=== PATIENT | male | born 1975 | race Caucasian/White ===

== ENCOUNTER 2016-09-29 16:32 | Emergency (ER) | payer SELFPAY ==
[~2016-09-29] VITALS: Ht 185.4 cm; Wt 86.2 kg
[~2016-09-29 16:32] MED LIST: ASPI1TAB17 PO; CEPH500C GT; CYCL10TA9 PO; MEPE50TA PO; ONDA4TAB11 PO; PRD20T PO; TRAM50TA2 PO
[2016-09-29] MEDS ORDERED: CATHETER FLUSH 10 ML SYR IV PRN (17:00)
[2016-09-29] MEDS ORDERED: NS 100 ML (IVPB) BAG IV ONE (17:00)
[2016-09-29] MEDS ORDERED: IOHEXOL 350 MG/ML 100 ML (OMNIPAQUE 350) VIAL IV ONE (17:00)
[2016-09-29] MEDS ORDERED: fentaNYL INJECTION 100 MCG/2 ML AMP IVP ONE (17:00)
--- NOTE | 2016-09-29 17:02 | ED Fall/Injury ---
General Chief Complaint: Trauma-Non Activation Stated Complaint: FELL OFF LADDER/RT SIDED BODY PAIN Nursing Triage Note: SEE TRAUMA NOTES Source: patient Exam Limitations: no limitations History of Present Illness Time seen by provider: 17:01 Initial Comments Ambulatory to ER with reports of right-sided body pain. Patient was climbing up onto his roof to fix a gutter. He was on the top rung of a 10 foot tall ladder when he slipped and fell striking the ladder on his way down. He felt a popping sensation to the right elbow and now has pain in the right elbow and right shoulder. He struck the right side of the abdomen on something on the way down and also has pain in the right lower abdomen. He did strike his head but there was no loss of consciousness. No neck pain. Location Injury Occurred: PT HOUSE Occurred: just prior to arrival Severity: moderate Injuries/Pain Location: upper extremity, abdomen Context: slipped Associated Symptoms (Fall): Abdominal Pain, No Chest Pain, No Confusion, No Dizziness, No Headache Allergies and Home Medications Allergies Coded Allergies: Codeine (Unverified Allergy, Mild, 08/22/09) Home Medications Hydrocodone/Acetaminophen 1 Each Tablet, 1 EACH PO Q4H PRN for PAIN-MODERATE TO SEVERE, #10 Prescribed by: SRAVANI COPE on 09/29/16 8169 Constitutional: see HPI Eyes: No Symptoms Reported Ears, Nose, Mouth, Throat: no symptoms reported Respiratory: no symptoms reported Cardiovascular: no symptoms reported Genitourinary: no symptoms reported Musculoskeletal: see HPI Skin: no symptoms reported Psychiatric/Neurological: No Symptoms Reported Past Zxxkzkh-Vphdly-Gozzmg Hx Patient Social History Alcohol Use: Denies Use Recreational Drug Use: No Smoking Status: Current Everyday Smoker Type Used: Cigarettes 2nd Hand Smoke Exposure: Yes Recent Foreign Travel: No Contact w/Someone Who Travel: No Recent Infectious Disease Expo: No Recent Hopitalizations: No Immunizations Up To Date Tetanus Booster (TDap): Less than 5yrs Seasonal Allergies Seasonal Allergies: No Surgeries HX Surgeries: Yes (Z-PLASTY) Respiratory Hx Respiratory Disorders: No Cardiovascular Hx Cardiac Disorders: No Neurological Hx Neurological Disorders: No Genitourinary Hx Genitourinary Disorders: No Gastrointestinal Hx Gastrointestinal Disorders: No Musculoskeletal Hx Musculoskeletal Disorders: Yes Musculoskeletal Disorders: Chronic Back Pain Endocrine Hx Endocrine Disorders: No HEENT HX ENT Disorders: No Cancer Hx Cancer: No Psychosocial Hx Psychiatric Problems: No Integumentary HX Skin/Integumentary Disorder: No Blood Transfusions Hx Blood Disorders: No Family Medical History Significant Family History: No Pertinent Family Hx Physical Exam Vital Signs Vital Sign - Last 12Hours 09/29/16 16:39 Temp 98.1 Pulse 85 Resp 20 B/P (MAP) 123/74 Pulse Ox 94 O2 Delivery Room Air Capillary Refill : Less Than 3 Seconds General Appearance: WD/WN, no apparent distress HEENT: PERRL/EOMI, normal ENT inspection Neck: non-tender, full range of motion Respiratory: lungs clear, normal breath sounds, no respiratory distress, no accessory muscle use Gastrointestinal: normal bowel sounds, soft, tenderness (right side of the abdomen) Extremities: normal range of motion, non-tender, other (there is no obvious swelling deformity erythema or ecchymosis to the right arm however he does persistently complain of pain to the right elbow.) Neurologic/Psychiatric: alert, normal mood/affect, oriented x 3 Skin: normal color, warm/dry Dayana Coma Score Best Eye Response: (4) Open Spontaneously Best Verbal Response: (5) Oriented Best Motor Response: (6) Obeys Commands Dayana Total: 15 Progress/Results/Core Measures Results/Orders Lab Results Laboratory Tests Test 09/29/16 16:55 Range/Units White Blood Count 6.0 4.3-11.0 10^3/uL Red Blood Count 4.68 4.35-5.85 10^6/uL Hemoglobin 14.0 13.3-17.7 G/DL Hematocrit 42 40-54 % Mean Corpuscular Volume 89 80-99 FL Mean Corpuscular Hemoglobin 30 25-34 PG Mean Corpuscular Hemoglobin Concent 34 32-36 G/DL Red Cell Distribution Width 13.5 10.0-14.5 % Platelet Count 271 130-400 10^3/uL Mean Platelet Volume 10.0 7.4-10.4 FL Neutrophils (%) (Auto) 46 42-75 % Lymphocytes (%) (Auto) 33 12-44 % Monocytes (%) (Auto) 9 0-12 % Eosinophils (%) (Auto) 12 H 0-10 % Basophils (%) (Auto) 1 0-10 % Neutrophils # (Auto) 2.7 1.8-7.8 X 10^3 Lymphocytes # (Auto) 2.0 1.0-4.0 X 10^3 Monocytes # (Auto) 0.5 0.0-1.0 X 10^3 Eosinophils # (Auto) 0.7 H 0.0-0.3 10^3/uL Basophils # (Auto) 0.1 0.0-0.1 10^3/uL My Orders Orders - SRAVANI COPE APRN Saline Lock/Iv-Start (09/29/16 16:53) Ct Head/Cervical Spine Wo (09/29/16 16:53) Ct Chest/Abdomen/Pelvis W (09/29/16 16:53) Shoulder, Right, 3 Views (09/29/16 16:53) Elbow, Right, 3 Views (09/29/16 16:53) Fentanyl Injection (Sublimaze Injection (09/29/16 17:00) Cbc With Automated Diff (09/29/16 16:53) Iohexol Injection (Omnipaque 350 Mg/Ml 1 (09/29/16 17:00) Sodium Chloride Flush (Catheter Flush Sy (09/29/16 17:00) Ns (Ivpb) (Sodium Chloride 0.9% Ivpb Bag (09/29/16 17:00) Medications Given in ED Current Medications Medications Dose Ordered Sig/Annetta Route Start Time Stop Time Status Last Admin Dose Admin Fentanyl Citrate 75 mcg ONCE ONCE IVP 09/29/16 17:00 09/29/16 17:01 DC 09/29/16 17:11 75 MCG Iohexol 100 ml ONCE ONCE IV 09/29/16 17:00 09/29/16 17:01 DC 09/29/16 17:30 100 ML Sodium Chloride 10 ml NEEDED PRN IV 09/29/16 17:00 09/29/16 17:30 10 ML Sodium Chloride 100 ml ONCE ONCE IV 09/29/16 17:00 09/29/16 17:01 DC 09/29/16 17:30 80 ML Vital Signs/I&O Vital Sign - Last 12Hours 09/29/16 16:39 Temp 98.1 Pulse 85 Resp 20 B/P (MAP) 123/74 Pulse Ox 94 O2 Delivery Room Air Blood Pressure Mean: 90 Diagnostic Imaging Diagonstic Imaging: Xray Comments NAME: ESTRELLA THOMAS MED REC#: [id number] PT STATUS: REG ER : 1975 PHYSICIAN: SRAVANI COPE APRN ADMIT DATE: 09/29/16/ER Draft Date of Exam:09/29/16 CT CHEST/ABDOMEN/PELVIS W PROCEDURE: CT chest, abdomen, and pelvis with contrast. INDICATION: Status post fall of ladder. Right mid sided pain. TECHNIQUE: CT imaging of the chest, abdomen and pelvis following the administration of intravenous contrast. CORRELATION STUDY: CT abdomen and pelvis, 07/23/2015. FINDINGS: CT CHEST: Heart size is unremarkable. Thoracic aorta has an unremarkable appearance. There is common origin of the brachycephalic trunk and left common carotid artery, a normal vascular variation. No suggestion for significant mediastinal hematoma. Lung evangelista with linear parenchymal densities of the lung bases, right greater than left, where there is slight nodularity favoring probable atelectasis. More focal nodular in the deep right costophrenic angle, measuring 14 x 9 mm. No significant effusion. No pneumothorax. Osseous structures demonstrate mild leftward curvature of the thoracic spine. No suggestion for acute appearing compression deformity. No displaced rib fracture. CT ABDOMEN and PELVIS: Liver demonstrates a hypervascular area of enhancement in the dome, otherwise, unremarkable. The gallbladder, spleen, pancreas and adrenal glands appear unremarkable. Normal enhancement of the kidneys. Abdominal aorta is unremarkable. No abnormal ascites or free air. There is overall slight enhancement suggested about the gastrointestinal tract. Moderate severity fecal retention. Urinary bladder is unremarkable. Prostate gland is unremarkable. Osseous structures demonstrate no acute finding. IMPRESSION: CT CHEST: 1. Negative for acute traumatic abdomen of the chest. 2. Likely basilar atelectasis. Slightly nodular density in the deep right costophrenic angle favors additional atelectasis. Pulmonary nodule, however, is not completely excluded. CT ABDOMEN and PELVIS: 1. Negative for acute traumatic abnormality about the abdomen and/or pelvis. 2. Suggestion of slight enhancement about the gastrointestinal tract. Correlation with blood pressure recommended. Telephone call has been made to the emergency department. Dictated on workstation # [id number] Dict: 09/29/16 1754 Trans: 09/29/16 1838 [facility] [id number] Interpreted by: JOEY HELTON DO Electronically signed by: Departure Impression Impression: Primary Impression: Fall Additional Impressions: Right arm pain Incidental pulmonary nodule Disposition: 01 HOME, SELF-CARE Condition: Stable Departure-Patient Inst. Decision time for Depature: 18:55 Referrals: [facility] (PCP/Family) Primary Care Physician Patient Instructions: Preventing Falls Add. Discharge Instructions: 1. Follow up with your doctor next week for any persistent right elbow pain to obtain further imaging such as an MRI to rule out ligamentous or tendinous injury. 2. Return to ER for any concerns All discharge instructions reviewed with patient and/or family. Voiced understanding. Scripts Hydrocodone/Acetaminophen ([place] 5-325 Tablet) 1 Each Tablet 1 EACH PO Q4H Y for PAIN-MODERATE TO SEVERE, #10 TAB Prov: SRAVANI COPE APRN 09/29/16 Copy Copies To 1: HOOD GOYAL PETER J APRN Sep 29, 2016 17:02
[2016-09-29 17:09] LABS: BASOPHILS # (AUTO) 0.1 10^3/uL (0.0-0.1); BASOPHILS % (AUTO) 1 % (0-10); EOSINOPHILS # (AUTO) 0.7 10^3/uL (0.0-0.3); EOSINOPHILS % (AUTO) 12 % (0-10); LYMPHOCYTES % (AUTO) 33 % (12-44); MEAN CORPUSCULAR HEMOGLOBIN 30 PG (25-34); MEAN CORPUSCULAR HGB CONC 34 G/DL (32-36); MEAN CORPUSCULAR VOLUME 89 FL (80-99); MONOCYTES # (AUTO) 0.5 X 10^3 (0.0-1.0); MONOCYTES % (AUTO) 9 % (0-12); NEUTROPHILS # (AUTO) 2.7 X 10^3 (1.8-7.8); NEUTROPHILS % (AUTO) 46 % (42-75); PLATELET COUNT 271 10^3/uL (130-400); RED BLOOD COUNT 4.68 10^6/uL (4.35-5.85); RED CELL DISTRIBUTION WIDTH 13.5 % (10.0-14.5)
--- NOTE | 2016-09-29 17:55 | Diagnostic Imaging Report ---
INDICATION: Fall of ladder, and right arm backwards. Pain. TECHNIQUE: Three views of the right shoulder 5:59 PM CORRELATION STUDY: None FINDINGS: The glenohumeral and acromioclavicular alignment are maintained and unremarkable. There is no evidence for acute fracture or dislocation. The visualized soft tissues are unremarkable. IMPRESSION: 1. Negative for acute bony abnormality about the shoulder. Dictated by: Dictated on workstation # [id number]
--- NOTE | 2016-09-29 17:55 | Diagnostic Imaging Report ---
PROCEDURE: CT head and CT cervical spine without contrast. TECHNIQUE: Multiple contiguous axial images were obtained through the brain and cervical spine without the use of intravenous contrast. Sagittal and coronal reformations through the cervical spine were then performed. INDICATION: Status post fall off ladder. CORRELATION STUDY: 08/30/2009 FINDINGS: CT HEAD: Ventricles and sulci are unremarkable. Normal rich-white differentiation. No abnormal areas of decreased attenuation to suggest edema. No midline shift or mass effect. Basilar cisterns are maintained. Bony calvarium intact. There is rather significant mucosal thickening and/or opacification along with air-fluid levels throughout all paranasal sinuses. Sphenoid sinuses are essentially opacified as well as multiple ethmoid air cells. Probable cysts or polyps in bilateral maxillary sinuses as well. Mastoid air cells clear. CT CERVICAL SPINE: Alignment anatomic. Cervical vertebral body heights generally stable with slight anterior wedging at multiple levels. No acute-appearing compression deformity. Posterior elements intact and in normal alignment. Odontoid intact with lateral masses of C1 and C2 aligned. IMPRESSION: CT HEAD: 1. Negative for acute traumatic intracranial abnormality. 2. Rather pronounced pansinusitis. CT CERVICAL SPINE: 1. Negative for acute fracture or traumatic subluxation. 2. Mild multilevel degenerative changes are present. Dictated by: Dictated on workstation # [id number]
--- NOTE | 2016-09-29 18:28 | Diagnostic Imaging Report ---
EXAMINATION: Right elbow at 5:58 PM INDICATION: Injury, elbow pain Three views were obtained. There are no prior studies available for comparison. There is slight deformity of the radial head. I suspect that this is a sequela of prior trauma. There is no fracture or acute bony abnormality identified. The elbow joint is well maintained. The posterior fat-pad is not elevated. IMPRESSION: 1. The slight irregularity of the radial head is more likely due to prior trauma than to an acute abnormality. There is no acute fracture identified. 2. Occult fracture of the elbow joint are not uncommon. If clinical concern regarding an underlying abnormality persists, then a short-term (7-10 days) followup right elbow series should be obtained. Dictated by: Dictated on workstation # [id number]
--- NOTE | 2016-09-29 18:38 | Diagnostic Imaging Report ---
PROCEDURE: CT chest, abdomen, and pelvis with contrast. INDICATION: Status post fall of ladder. Right mid sided pain. TECHNIQUE: CT imaging of the chest, abdomen and pelvis following the administration of intravenous contrast. CORRELATION STUDY: CT abdomen and pelvis, 07/23/2015. FINDINGS: CT CHEST: Heart size is unremarkable. Thoracic aorta has an unremarkable appearance. There is common origin of the brachycephalic trunk and left common carotid artery, a normal vascular variation. No suggestion for significant mediastinal hematoma. Lung evangelista with linear parenchymal densities of the lung bases, right greater than left, where there is slight nodularity favoring probable atelectasis. More focal nodular in the deep right costophrenic angle, measuring 14 x 9 mm. No significant effusion. No pneumothorax. Osseous structures demonstrate mild leftward curvature of the thoracic spine. No suggestion for acute appearing compression deformity. No displaced rib fracture. CT ABDOMEN and PELVIS: Liver demonstrates a hypervascular area of enhancement in the dome, otherwise, unremarkable. The gallbladder, spleen, pancreas and adrenal glands appear unremarkable. Normal enhancement of the kidneys. Abdominal aorta is unremarkable. No abnormal ascites or free air. There is overall slight enhancement suggested about the gastrointestinal tract. Moderate severity fecal retention. Urinary bladder is unremarkable. Prostate gland is unremarkable. Osseous structures demonstrate no acute finding. IMPRESSION: CT CHEST: 1. Negative for acute traumatic abdomen of the chest. 2. Likely basilar atelectasis. Slightly nodular density in the deep right costophrenic angle favors additional atelectasis. Pulmonary nodule, however, is not completely excluded. CT ABDOMEN and PELVIS: 1. Negative for acute traumatic abnormality about the abdomen and/or pelvis. 2. Suggestion of slight enhancement about the gastrointestinal tract. Correlation with blood pressure recommended. Telephone call has been made to the emergency department. Dictated by: Dictated on workstation # [id number]
[2016-09-29] MEDS ORDERED: HYDR-757 PO (18:57)
[2016-09-29 19:47] VITALS: BP 123/74
== END 2016-09-29 19:47 | disposition home or self-care (01) ==
LOC: EDUNIT# 16:32 → ER 16:35
DX: M25.521 Pain in right elbow (principal); R91.1 Solitary pulmonary nodule; F17.210 Nicotine dependence, cigarettes, uncomplicated; W11.XXXA Fall on and from ladder, initial encounter; W22.09XA Striking against other stationary object, initial encounter; Y92.89 Other specified places as the place of occurrence of the external cause
CPT/HCPCS: 36415; 70450; 71260; 72125; 73030; 73080; 74177; 85025

== ENCOUNTER 2016-11-14 23:42 | Inpatient (IN) | payer OTHER ==
[~2016-11-14] VITALS: Ht 185.4 cm; Wt 83.1 kg
[~2016-11-14 23:42] MED LIST changes: +HYDR-757 PO
[2016-11-14] MEDS ORDERED: IBUP-1780 (23:58)
[2016-11-14] MEDS ORDERED: DIVA500T15 PO (23:58)
[2016-11-14] MEDS ORDERED: AMOX500C2 (23:58)
[2016-11-15] MEDS ORDERED: NS IV 1000 ML 1,000 ML IV ONE (00:03)
[2016-11-15] MEDS ORDERED: CLINDAMYCIN INJECTION 900 MG in NS (IVPB) 50 ML IV ONE (00:45)
[2016-11-15 00:57] LABS: BASOPHILS % (AUTO) 1 % (0-10); EOSINOPHILS # (AUTO) 0.4 10^3/uL (0.0-0.3); EOSINOPHILS % (AUTO) 6 % (0-10); LYMPHOCYTES # (AUTO) 1.1 X 10^3 (1.0-4.0); LYMPHOCYTES % (AUTO) 15 % (12-44); MEAN CORPUSCULAR HEMOGLOBIN 30 PG (25-34); MEAN CORPUSCULAR HGB CONC 34 G/DL (32-36); MEAN CORPUSCULAR VOLUME 88 FL (80-99); MEAN PLATELET VOLUME 10.3 FL (7.4-10.4); MONOCYTES # (AUTO) 0.8 X 10^3 (0.0-1.0); MONOCYTES % (AUTO) 11 % (0-12); NEUTROPHILS # (AUTO) 4.9 X 10^3 (1.8-7.8); NEUTROPHILS % (AUTO) 68 % (42-75); PLATELET COUNT 223 10^3/uL (130-400); RED BLOOD COUNT 4.33 10^6/uL (4.35-5.85); RED CELL DISTRIBUTION WIDTH 13.1 % (10.0-14.5); WHITE BLOOD COUNT 7.3 10^3/uL (4.3-11.0)
[2016-11-15] MEDS ORDERED: fentaNYL INJECTION 100 MCG/2 ML AMP IVP ONE (01:00)
[2016-11-15 01:07] LABS: PROTHROMBIN TIME PATIENT 12.6 SEC (12.2-14.7)
[2016-11-15 01:14] LABS: ALANINE AMINOTRANSFERASE 110 U/L (0-55); ALBUMIN 3.9 GM/DL (3.2-4.5); ANION GAP 11 MMOL/L (5-14); ASPARTATE AMINO TRANSFERASE 97 U/L (5-34); BILIRUBIN,TOTAL 0.4 MG/DL (0.1-1.0); BLOOD UREA NITROGEN 12 MG/DL (7-18); BUN/CREATININE RATIO 13; CALCIUM 8.9 MG/DL (8.5-10.1); CARBON DIOXIDE 27 MMOL/L (21-32); CHLORIDE 101 MMOL/L (98-107); CREATININE SERUM 0.95 MG/DL (0.60-1.30); GFR ESTIMATED > 60; GLUCOSE 72 MG/DL (70-105); POTASSIUM 3.5 MMOL/L (3.6-5.0); SODIUM 139 MMOL/L (135-145)
--- NOTE | 2016-11-15 01:58 | ED General ---
General Chief Complaint: Dental Problems/Pain Stated Complaint: TOOTHPAIN NECK PAIN Nursing Triage Note: right dental pain/abcess x12 days Nursing Sepsis Screen: Possible Sepsis Risk Source of Information: Patient Exam Limitations: No Limitations History of Present Illness Time Seen by Provider: 00:03 Initial Comments This 41-year-old man presents to the emergency room with complaints of fever and worsening dental abscess. He has been taking amoxicillin for the past 12 days in anticipation of eventually having dental extractions. He plans to see Dr. Klein to have this performed. He reports treatment started when he was recently in [facility]. He was released on 10/13. He continues to take the antibiotics without improvement. Tonight he is notably febrile and tachycardic. He complains of intense pain around the right lower jaw. He reports he cannot have local anesthetic injections as he has seizure disorder and these injections caused him to "fall out and have a seizure". Allergies and Home Medications Allergies Coded Allergies: Codeine (Unverified Allergy, Mild, 08/22/09) Home Medications Amoxicillin 500 Mg Capsule, #40 (Reported) Divalproex Sodium 500 Mg Tab.er.24h, #14 (Reported) Hydrocodone/Acetaminophen 1 Each Tablet, 1 EACH PO Q4H PRN for PAIN-MODERATE TO SEVERE, #10 Prescribed by: SRAVANI COPE on 09/29/16 1097 Ibuprofen 800 Mg Tablet, #42 (Reported) Constitutional: see HPI EENTM: see HPI Respiratory: no symptoms reported Cardiovascular: see HPI Gastrointestinal: no symptoms reported Genitourinary: no symptoms reported Musculoskeletal: no symptoms reported Skin: no symptoms reported Psychiatric/Neurological: No Symptoms Reported Hematologic/Lymphatic: No Symptoms Reported Immunological/Allergic: no symptoms reported Past Pagqymp-Vabpbj-Mtjyds Hx Patient Social History Alcohol Use: Denies Use Recreational Drug Use: Yes (prior history of IV drug use) Smoking Status: Current Everyday Smoker Type Used: Cigarettes 2nd Hand Smoke Exposure: Yes Recent Foreign Travel: No Contact w/Someone Who Travel: No Recent Infectious Disease Expo: No Recent Hopitalizations: No Immunizations Up To Date Tetanus Booster (TDap): Less than 5yrs Seasonal Allergies Seasonal Allergies: No Surgeries HX Surgeries: Yes (Z-PLASTY) Respiratory Hx Respiratory Disorders: No Cardiovascular Hx Cardiac Disorders: No Neurological Hx Neurological Disorders: Yes Neurological Disorders: Seizure Disorder Genitourinary Hx Genitourinary Disorders: No Gastrointestinal Hx Gastrointestinal Disorders: Yes Gastrointestinal Disorders: Hepatitis (hepatitis C) Musculoskeletal Hx Musculoskeletal Disorders: Yes Musculoskeletal Disorders: Chronic Back Pain Endocrine Hx Endocrine Disorders: No HEENT HX ENT Disorders: No Cancer Hx Cancer: No Psychosocial Hx Psychiatric Problems: No Integumentary HX Skin/Integumentary Disorder: No Blood Transfusions Hx Blood Disorders: No Family Medical History Significant Family History: No Pertinent Family Hx Physical Exam Vital Signs Vital Sign - Last 12Hours 11/14/16 23:58 Temp 102.5 Pulse 119 Resp 20 B/P (MAP) 136/114 Pulse Ox 98 O2 Delivery Room Air Capillary Refill : Less Than 3 Seconds General Appearance: WD/WN, Mild Distress HEENT: PERRL/EOMI, Other (swelling, induration and extreme tenderness around the right lower lateral gingiva and beneath the mandible. No lymphadenopathy noted. No overt superficial abscess to be drained.) Neck: Full Range of Motion, Normal Inspection, Supple, Tender Lateral (right anterior) Respiratory: Lungs Clear, Normal Breath Sounds, No Accessory Muscle Use, No Respiratory Distress Cardiovascular: No Edema, No Murmur, Tachycardia Gastrointestinal: Normal Bowel Sounds, Non Tender, Soft Extremity: Normal Inspection, No Pedal Edema Neurologic/Psychiatric: Alert, Oriented x3, No Motor/Sensory Deficits, Normal Mood/Affect, bleach analyst II-XII Norm as Tested Skin: Normal Color, Warm/Dry Focused Exam Lactic Acid Level Laboratory Tests Test 11/15/16 00:44 Lactic Acid Level 1.35 MMOL/L (0.50-2.00) Progress/Results/Core Measures Results/Orders Lab Results Laboratory Tests Test 11/15/16 00:44 Range/Units White Blood Count 7.3 4.3-11.0 10^3/uL Red Blood Count 4.33 L 4.35-5.85 10^6/uL Hemoglobin 13.0 L 13.3-17.7 G/DL Hematocrit 38 L 40-54 % Mean Corpuscular Volume 88 80-99 FL Mean Corpuscular Hemoglobin 30 25-34 PG Mean Corpuscular Hemoglobin Concent 34 32-36 G/DL Red Cell Distribution Width 13.1 10.0-14.5 % Platelet Count 223 130-400 10^3/uL Mean Platelet Volume 10.3 7.4-10.4 FL Neutrophils (%) (Auto) 68 42-75 % Lymphocytes (%) (Auto) 15 12-44 % Monocytes (%) (Auto) 11 0-12 % Eosinophils (%) (Auto) 6 0-10 % Basophils (%) (Auto) 1 0-10 % Neutrophils # (Auto) 4.9 1.8-7.8 X 10^3 Lymphocytes # (Auto) 1.1 1.0-4.0 X 10^3 Monocytes # (Auto) 0.8 0.0-1.0 X 10^3 Eosinophils # (Auto) 0.4 H 0.0-0.3 10^3/uL Basophils # (Auto) 0.0 0.0-0.1 10^3/uL Prothrombin Time 12.6 12.2-14.7 SEC INR Comment 1.0 0.8-1.4 Activated Partial Thromboplast Time 65 H 24-35 SEC Sodium Level 139 135-145 MMOL/L Potassium Level 3.5 L 3.6-5.0 MMOL/L Chloride Level 101 98-107 MMOL/L Carbon Dioxide Level 27 21-32 MMOL/L Anion Gap 11 5-14 MMOL/L Blood Urea Nitrogen 12 7-18 MG/DL Creatinine 0.95 0.60-1.30 MG/DL Estimat Glomerular Filtration Rate > 60 BUN/Creatinine Ratio 13 Glucose Level 72 70-105 MG/DL Lactic Acid Level 1.35 0.50-2.00 MMOL/L Calcium Level 8.9 8.5-10.1 MG/DL Total Bilirubin 0.4 0.1-1.0 MG/DL Aspartate Amino Transf (AST/SGOT) 97 H 5-34 U/L Alanine Aminotransferase (ALT/SGPT) 110 H 0-55 U/L Alkaline Phosphatase 60 40-136 U/L Total Protein 8.0 6.4-8.2 GM/DL Albumin 3.9 3.2-4.5 GM/DL Valproic Acid (Depakene) Level < 2.0 L 50.0-100.0 UG/ML My Orders Orders - ISAIAH KNIGHT MD Cbc With Automated Diff (11/15/16 00:03) Comprehensive Metabolic Panel (11/15/16 00:03) Lactic Acid Analyzer (11/15/16 00:03) Blood Culture (11/15/16 00:03) Sputum Culture (11/15/16 00:03) Ua Culture If Indicated (11/15/16 00:03) Protime With Inr (11/15/16 00:03) Partial Thromboplastin Time (11/15/16 00:03) Chest 1 View, Ap/Pa Only (11/15/16 00:03) O2 (11/15/16 00:03) Saline Lock/Iv-Start (11/15/16 00:03) Saline Lock/Iv-Start (11/15/16 00:03) Vital Signs Adult Sepsis Patie Q1HR (11/15/16 00:03) Remove Rings In Anticipation O (11/15/16 00:03) Ns Iv 1000 Ml (Sodium Chloride 0.9%) (11/15/16 00:03) Clindamycin Injection (Cleocin Injection (11/15/16 00:45) Fentanyl Injection (Sublimaze Injection (11/15/16 01:00) Valproic Acid (11/15/16 01:03) Drug Screen Stat (Urine) (11/15/16 01:03) Ct Maxillofacial Wo (11/15/16 01:20) Ketorolac Injection (Toradol Injection) (11/15/16 02:00) Medications Given in ED Current Medications Medications Dose Ordered Sig/Annetta Route Start Time Stop Time Status Last Admin Dose Admin Clindamycin Phosphate 900 mg/ Sodium Chloride 56 ml @ 100 mls/hr ONCE ONCE IV 11/15/16 00:45 11/15/16 01:18 DC 11/15/16 00:59 100 MLS/HR Fentanyl Citrate 75 mcg ONCE ONCE IVP 11/15/16 01:00 11/15/16 01:01 DC 11/15/16 00:59 75 MCG Ketorolac Tromethamine 30 mg ONCE ONCE IVP 11/15/16 02:00 11/15/16 02:01 DC 11/15/16 02:03 30 MG Sodium Chloride 1,000 ml @ 0 mls/hr Q0M ONCE IV 11/15/16 00:03 11/15/16 00:05 DC 11/15/16 00:18 0 MLS/HR Vital Signs/I&O Vital Sign - Last 12Hours 11/14/16 11/15/16 11/15/16 23:58 00:50 03:01 Temp 102.5 101.0 Pulse 119 100 Resp 20 20 B/P (MAP) 136/114 Pulse Ox 98 97 95 O2 Delivery Room Air Room Air Room Air Blood Pressure Mean: 121 Progress Note : Progress Note Sepsis was suspected as patient had tachycardia, fever, and known source of infection. Blood cultures and lactic acid were drawn. Clindamycin was ordered for initial antibiotic therapy. IV fluids were initiated. Toradol and fentanyl were used for pain. Case was reviewed with Dr. York and Dr. Klein. Dr. Klein suggested adding Rocephin as well. CT of the face was performed without contrast as patient had very poor venous access which we did not want to disrupt with the contrast bolus. Phlegmon versus possible abscess was noted. This will be reviewed further by Dr. Klein later in the day. Depakote level was low and should be addressed by the primary care team. Diagnostic Imaging Diagonstic Imaging: CT Plain Films/CT/US/NM/MRI: facial bones Comments CT face was viewed by me and report from [facility] reviewed. There was swelling with possible phlegmon versus abscess along the right mandible. There was apical lucency at teeth 20 and 29. Maxillary sinus thickening was also noted. Diagonstic Imaging: Xray Plain Films/CT/US/NM/MRI: chest Comments Chest x-ray viewed by me. Report not yet available. No acute abnormalities appreciated. Departure Communication Time/Spoke to Admitting Phy: 02:[address] York Time/Spoke to Consulting Physi: 02:45 Communication/Consulting Dr. Klein Impression Impression: Primary Impression: Sepsis Qualified Codes: A41.9 - Sepsis, unspecified organism Additional Impressions: Dental abscess Facial cellulitis Maxillary sinusitis Qualified Codes: J01.00 - Acute maxillary sinusitis, unspecified Disposition: ADMITTED INPATIENT Condition: Improved Decision to Admit Reason: Admit from ER (General) Decision to Admit/Date: Nov 15, 2016 Time/Decision to Admit Time: 00:40 Departure-Patient Inst. Referrals: [facility] (PCP/Family) Primary Care Physician ISAIAH KNIGHT MD Nov 15, 2016 01:58
[2016-11-15] MEDS ORDERED: KETOROLAC 30 MG/ML VIAL IVP ONE (02:00)
[2016-11-15 04:00] VITALS: BP 110/57
[2016-11-15] MEDS ORDERED: cefTRIAXone 1 GM (ROCEPHIN) VIAL ONE (04:29)
[2016-11-15] MEDS ORDERED: cefTRIAXone INJECTION 1,000 MG in NS (IVPB) 50 ML IV STA (04:30)
[2016-11-15] MEDS ORDERED: NS (IVPB) 50 ML ONE (04:30)
[2016-11-15] MEDS: NS IV 1000 ML 1,000 ML IV SCH ×4 (04:52→20:06)
[2016-11-15] MEDS: HYDROcodone/APAP 5 MG/325 MG (LORTAB) TAB PO PRN ×2 (05:35→08:05)
[2016-11-15] MEDS ORDERED: CATHETER FLUSH 10 ML SYR IV PRN (06:15)
[2016-11-15] MEDS ORDERED: ONDANSETRON 4 MG/2 ML (SDV) Z0FRAN IV PRN (06:15)
--- NOTE | 2016-11-15 08:18 | Diagnostic Imaging Report ---
CHEST 1 VIEW, AP/PA ONLY Indication: Chest pain. Comparison: Portable chest radiograph of 08/30/2009 Findings: No focal airspace disease in the visualized lungs. Please note that the posterior lower lobes are poorly evaluated by portable radiography. No pleural effusion or pneumothorax. Normal cardiomediastinal silhouette. Impression: No acute cardiopulmonary process by portable radiography. Dictated by: Dictated on workstation # [id number]
[2016-11-15 08:24] VITALS: BP 110/67
[2016-11-15] MEDS: CLINDAMYCIN 900 MG/NS 50 ML IVPB IV SCH ×6 (08:31→23:36)
--- NOTE | 2016-11-15 08:43 | Diagnostic Imaging Report ---
PROCEDURE: CT maxillofacial without contrast. TECHNIQUE: Multiple contiguous axial images were obtained through the facial bones without the use of intravenous contrast. INDICATION: Right-sided dental abscess. Evaluate for extent of infection. COMPARISON: None available. FINDINGS: There is asymmetric subcutaneous reticulations and induration along the superficial aspect of the mandible and buccal surface of the mandible. However, there is no discrete abscess within the subcutaneous tissues by noncontrast imaging. Inflammatory stranding extends up into the buccal space bilaterally. The patient's mandibular molars are absent bilaterally. There is a periapical lucency around both of the roots of the right second premolar (tooth 29). There are similar lucencies around both roots of the left second premolar (tooth 20). Cavity of the surface of the left second premolar with erosion of the enamel and dentin, which appears to extend deep to the level of the pulp. There is also a cavity involving the first premolar on the left (tooth 19). Multiple amalgam dental fillings are present throughout the remainder of the teeth. Multifocal mucosal thickening of the bilateral maxillary and ethmoid sinuses. Trace mucosal thickening of the right frontal sinus. Airway remains patent. Orbits are normal. No abnormal mass effect or hydrocephalus within the visualized portions of the brain. IMPRESSION: 1. Multifocal dental caries includes periapical lucencies of the bilateral second premolars (teeth #29 and #20). 2. Asymmetric inflammatory stranding along the buccal surface of the right mandible is likely due to dental infection. No discrete drainable abscess. 3. Multifocal paranasal sinus disease is likely chronic in nature. No complete opacification of the paranasal sinuses. 4. Findings are in agreement with the preliminary report. Dictated by: Dictated on workstation # [id number]
[2016-11-15] MEDS ORDERED: MIRT30TA6 PO (08:51)
[2016-11-15 10:39] LABS: BILIRUBIN,URINE NEGATIVE (NEGATIVE); KETONES,URINE NEGATIVE (NEGATIVE); LEUKOCYTE ESTERASE ,URINE NEGATIVE (NEGATIVE); NITRITE,URINE NEGATIVE (NEGATIVE); PH,URINE 7 (5-9); PROTEIN,URINE NEGATIVE (NEGATIVE); UROBILINOGEN,URINE NORMAL (NORMAL)
[2016-11-15 10:59] LABS: BILIRUBIN,URINE NEGATIVE (NEGATIVE); KETONES,URINE NEGATIVE (NEGATIVE); LEUKOCYTE ESTERASE ,URINE NEGATIVE (NEGATIVE); NITRITE,URINE NEGATIVE (NEGATIVE); PH,URINE 6.5 (5-9); PROTEIN,URINE NEGATIVE (NEGATIVE); UROBILINOGEN,URINE NORMAL (NORMAL)
--- NOTE | 2016-11-15 11:03 | History & Physicial (CHS) ---
HPI History of Present Illness: 41yo male presented to ER with complaints of fever and abscessed tooth. [facility] 10 days of amoxicillin for the tooth. He was in residential 40 days, and he was seen at the dental clinic prior to going to residential. He had been referred to Dr Klein but had not followed through with that when he went to residential. He had finished the amoxicillin and has been out of residential for 3-4 days. His right side of his jaw had swelled significantly, and he cannot bite down due to pain. He has also had a worsening fever in [place] past 24-48h. No obvious pus coming from the abscessed tooth. No bleeding. Source: patient Exam Limitations: no limitations Date seen by provider: Nov 15, 2016 Time Seen by Provider: 09:00 Attending Physician Priscilla York MD PCP Chloe,[facility] Consult Corky Klein DDS Date of Admission Nov 15, 2016 at 2:54 am Home Medications Home Medications Reviewed patient Home Medication Reconciliation Form Allergies Coded Allergies: codeine (Unverified Allergy, Mild, 08/22/09) NLR-Mrsxny-Dhbqmm Hx Patient Social History Alcohol Use: Denies Use Recreational Drug Use: No Smoking Status: Current Everyday Smoker Type Used: Cigarettes 2nd Hand Smoke Exposure: Yes Recent Foreign Travel: No Contact w/other who traveled: No Recent Hopitalizations: No Recent Infectious Disease Expo: No Physical Abuse Screen: No Sexual Abuse: No Immunizations Up To Date Tetanus Booster (TDap): Less than 5yrs Family Medical History Significant Family History: No Pertinent Family Hx Review of Systems ([facility]) Constitutional: no symptoms reported All Other Systems Reviewed Negative Unless Noted: Yes (Negative excepted noted.) Reviewed Test Results Reviewed Test Results Lab Laboratory Tests Test 11/15/16 00:44 11/15/16 05:40 11/15/16 10:50 Range/Units White Blood Count 7.3 4.3-11.0 10^3/uL Red Blood Count 4.33 L 4.35-5.85 10^6/uL Hemoglobin 13.0 L 13.3-17.7 G/DL Hematocrit 38 L 40-54 % Mean Corpuscular Volume 88 80-99 FL Mean Corpuscular Hemoglobin 30 25-34 PG Mean Corpuscular Hemoglobin Concent 34 32-36 G/DL Red Cell Distribution Width 13.1 10.0-14.5 % Platelet Count 223 130-400 10^3/uL Mean Platelet Volume 10.3 7.4-10.4 FL Neutrophils (%) (Auto) 68 42-75 % Lymphocytes (%) (Auto) 15 12-44 % Monocytes (%) (Auto) 11 0-12 % Eosinophils (%) (Auto) 6 0-10 % Basophils (%) (Auto) 1 0-10 % Neutrophils # (Auto) 4.9 1.8-7.8 X 10^3 Lymphocytes # (Auto) 1.1 1.0-4.0 X 10^3 Monocytes # (Auto) 0.8 0.0-1.0 X 10^3 Eosinophils # (Auto) 0.4 H 0.0-0.3 10^3/uL Basophils # (Auto) 0.0 0.0-0.1 10^3/uL Prothrombin Time 12.6 12.2-14.7 SEC INR Comment 1.0 0.8-1.4 Activated Partial Thromboplast Time 65 H 24-35 SEC Sodium Level 139 135-145 MMOL/L Potassium Level 3.5 L 3.6-5.0 MMOL/L Chloride Level 101 98-107 MMOL/L Carbon Dioxide Level 27 21-32 MMOL/L Anion Gap 11 5-14 MMOL/L Blood Urea Nitrogen 12 7-18 MG/DL Creatinine 0.95 0.60-1.30 MG/DL Estimat Glomerular Filtration Rate > 60 BUN/Creatinine Ratio 13 Glucose Level 72 70-105 MG/DL Lactic Acid Level 1.35 0.50-2.00 MMOL/L Calcium Level 8.9 8.5-10.1 MG/DL Total Bilirubin 0.4 0.1-1.0 MG/DL Aspartate Amino Transf (AST/SGOT) 97 H 5-34 U/L Alanine Aminotransferase (ALT/SGPT) 110 H 0-55 U/L Alkaline Phosphatase 60 40-136 U/L Total Protein 8.0 6.4-8.2 GM/DL Albumin 3.9 3.2-4.5 GM/DL Valproic Acid (Depakene) Level < 2.0 L 50.0-100.0 UG/ML Urine Color YELLOW YELLOW Urine Clarity CLEAR SLIGHTLY CLOUDY Urine pH 7 6.5 5-9 Urine Specific [place] 1.005 L 1.010 L 1.016-1.022 Urine Protein NEGATIVE NEGATIVE NEGATIVE Urine Glucose (UA) NEGATIVE NEGATIVE NEGATIVE Urine Ketones NEGATIVE NEGATIVE NEGATIVE Urine Nitrite NEGATIVE NEGATIVE NEGATIVE Urine Bilirubin NEGATIVE NEGATIVE NEGATIVE Urine Urobilinogen NORMAL NORMAL NORMAL MG/DL Urine Leukocyte Esterase NEGATIVE NEGATIVE NEGATIVE Urine RBC (Auto) NEGATIVE NEGATIVE NEGATIVE Urine RBC NONE NONE /HPF Urine WBC NONE NONE /HPF Urine Crystals NONE NONE /LPF Urine Bacteria NEGATIVE NEGATIVE /HPF Urine Casts NONE NONE /LPF Urine Mucus NEGATIVE NEGATIVE /LPF Urine Culture Indicated NO NO Urine Opiates Screen NEGATIVE NEGATIVE Urine Oxycodone Screen POSITIVE H NEGATIVE Urine Methadone Screen NEGATIVE NEGATIVE Urine Propoxyphene Screen NEGATIVE NEGATIVE Urine Barbiturates Screen NEGATIVE NEGATIVE Ur Tricyclic Antidepressants Screen NEGATIVE NEGATIVE Urine Phencyclidine Screen NEGATIVE NEGATIVE Urine Amphetamines Screen NEGATIVE NEGATIVE Urine Methamphetamines Screen NEGATIVE NEGATIVE Urine Benzodiazepines Screen NEGATIVE NEGATIVE Urine Cocaine Screen NEGATIVE NEGATIVE Urine Cannabinoids Screen NEGATIVE NEGATIVE Urine Squamous Epithelial Cells RARE /HPF Radiology Date of Exam:11/15/16 CT MAXILLOFACIAL WO PROCEDURE: CT maxillofacial without contrast. TECHNIQUE: Multiple contiguous axial images were obtained through the facial bones without the use of intravenous contrast. INDICATION: Right-sided dental abscess. Evaluate for extent of infection. COMPARISON: None available. FINDINGS: There is asymmetric subcutaneous reticulations and induration along the superficial aspect of the mandible and buccal surface of the mandible. However, there is no discrete abscess within the subcutaneous tissues by noncontrast imaging. Inflammatory stranding extends up into the buccal space bilaterally. The patient's mandibular molars are absent bilaterally. There is a periapical lucency around both of the roots of the right second premolar (tooth 29). There are similar lucencies around both roots of the left second premolar (tooth 20). Cavity of the surface of the left second premolar with erosion of the enamel and dentin, which appears to extend deep to the level of the pulp. There is also a cavity involving the first premolar on the left (tooth 19). Multiple amalgam dental fillings are present throughout the remainder of the teeth. Multifocal mucosal thickening of the bilateral maxillary and ethmoid sinuses. Trace mucosal thickening of the right frontal sinus. Airway remains patent. Orbits are normal. No abnormal mass effect or hydrocephalus within the visualized portions of the brain. IMPRESSION: 1. Multifocal dental caries includes periapical lucencies of the bilateral second premolars (teeth #29 and #20). 2. Asymmetric inflammatory stranding along the buccal surface of the right mandible is likely due to dental infection. No discrete drainable abscess. 3. Multifocal paranasal sinus disease is likely chronic in nature. No complete opacification of the paranasal sinuses. 4. Findings are in agreement with the preliminary report. Physical Exam-([facility]) Physical Exam Vital Signs VS - Last 72 Hours, by Label 11/14/16 11/15/16 11/15/16 11/15/16 23:58 00:50 03:01 08:24 Temp 102.5 101.0 98.2 Pulse 119 100 79 Resp 20 20 20 B/P (MAP) 136/114 110/67 Pulse Ox 98 97 95 96 O2 Delivery Room Air Room Air Room Air Room Air Capillary Refill : Less Than 3 Seconds General Appearance: WD/WN, no apparent distress HEENT: PERRL/EOMI, normal ENT inspection, pharynx normal, other (severe caries with obvious swelling of the right jawline) Neck: non-tender, full range of motion, supple, normal inspection Respiratory: chest non-tender, lungs clear, normal breath sounds, no respiratory distress, no accessory muscle use Cardiovascular: regular rate, rhythm, no edema, no gallop, no JVD, no murmur Gastrointestinal: normal bowel sounds, non tender, soft, no organomegaly, no pulsatile mass Back: normal inspection, no CVA tenderness, no vertebral tenderness Extremities: normal range of motion, non-tender, normal inspection, no pedal edema, no calf tenderness, normal capillary refill Neurologic/Psychiatric: academic advisor II-XII nml as tested, no motor/sensory deficits, alert, normal mood/affect, oriented x 3 Skin: normal color, warm/dry Lymphatic: no adenopathy Assessment/Plan Assessment/Plan Admission Dx SEE BELOW Plan DENTAL ABSCESS ADM - on IV clinda and rocephin. we have called Dr Klein to take a look at him as well. OPIATE ADDICTION ADM - pt previously on suboxone, obtaining it from his girlfriend from her rx, declined [place] [facility] [place] would use narcotics very carefully in this patient. will DC hydrocodone, rely on NSAIDs for now. CHRONIC HEPATITIS C WITHOUT COMA ADM - not a candidate for tx due to ongoing drug abuse DVT PROPH: AMBULATE TID Diagnosis/Problems: Copy Copies To 1: DAX MONTANO APRN, MD Nov 15, 2016 11:03 am
[2016-11-15 11:14] LABS: SQUAMOUS EPITHELIAL CELL,UR RARE /HPF
[2016-11-15] MEDS: CATHETER FLUSH 10 ML SYR IV SCH ×2 (11:40→20:05)
[2016-11-15 12:14] VITALS: BP 117/73
[2016-11-15] MEDS: KETOROLAC 30 MG/ML VIAL IV PRN ×2 (12:46→22:58)
[2016-11-15 16:00] VITALS: BP 125/79
[2016-11-15] MEDS ORDERED: ACETAMINOPHEN 325 MG TABLET/CAPLET (TYLENOL) PO PRN (18:30)
--- NOTE | 2016-11-15 18:43 | Diagnostic Imaging Report ---
Indication: History dental abscess. Comparison: CT facial bones from earlier the same day. Findings: Single Panorex view was obtained. Again identified are areas of periapical lucency involving teeth #29 and 20. No other lytic or blastic lesions are seen. Mandible is otherwise intact. Bilateral temporomandibular joints appear to be within normal limits. Impression: 1. Periapical lucencies of teeth #20 and 29. Findings can be seen with periapical abscess. Dictated by: Dictated on workstation # [id number]
[2016-11-15 19:54] VITALS: BP 116/73
[2016-11-15] MEDS ORDERED: DIVALPROEX EXT RELEASE 500 MG (DEPAKOTE ER) TAB PO SCH (21:00)
[2016-11-16] VITALS: BP 120/80
[2016-11-16] MEDS: NS IV 1000 ML 1,000 ML IV SCH ×2 (03:13→10:55)
[2016-11-16 04:00] VITALS: BP 98/53
[2016-11-16] MEDS: CATHETER FLUSH 10 ML SYR IV SCH ×2 (04:46→14:39)
[2016-11-16] MEDS ORDERED: cefTRIAXone 1 GM/NS 50 ML IVPB IV SCH ×2 (05:00)
[2016-11-16 08:00] VITALS: BP 111/75
[2016-11-16] MEDS: CLINDAMYCIN 900 MG/NS 50 ML IVPB IV SCH ×2 (08:10)
--- NOTE | 2016-11-16 08:21 | Progress Note-Pre Operative ---
Pre-Operative Progress Note H&P Reviewed The H&P was reviewed, patient examined and no changes noted. Date Seen by Provider: Nov 16, 2016 Time Seen by Provider: 08:15 Date H&P Reviewed: Nov 16, 2016 Time H&P Reviewed: 08:15 Pre-Operative Diagnosis: carious teeth 19,30 submandibular abcess right side SAMMY DANG DDS Nov 16, 2016 8:21 am
[2016-11-16] MEDS ORDERED: LIDOCAINE/EPI 2% 1:100,00 (XYLOCAINE) 20 ML VIAL ONE (11:04)
[2016-11-16] MEDS ORDERED: NEO/POLY/BAC (NEOSPORIN) OINT 15 GM TUBE ONE (11:04)
[2016-11-16] MEDS ORDERED: ROPIVACAINE 5MG/ML 30ML VIAL ONE (11:04)
[2016-11-16] MEDS ORDERED: LIDOCAINE PF 2% 5 ML (XYLOCAINE) VIAL ONE (11:18)
[2016-11-16] MEDS ORDERED: ONDANSETRON 4 MG/2 ML (SDV) Z0FRAN ONE (11:18)
[2016-11-16] MEDS ORDERED: proPOfol 200 MG/20 ML (DIPRIVAN) VIAL IV ONE ×2 (11:18→11:46)
[2016-11-16] MEDS ORDERED: MIDAZOLAM 2 MG/2 ML (VERSED) VIAL ONE ×2 (11:18→11:53)
[2016-11-16] MEDS ORDERED: LACTATED RINGERS 1,000 ML IV ONE (11:18)
[2016-11-16] MEDS ORDERED: DEXAMETHASONE PF 10 MG/ML (DECADRON) VIAL ONE (11:18)
[2016-11-16] MEDS ORDERED: SEVOFLURANE (ULTANE) 15 ML INHAL SOLN ONE ×2 (11:18→12:02)
[2016-11-16] MEDS ORDERED: fentaNYL INJECTION 100 MCG/2 ML AMP ONE (11:19)
[2016-11-16] MEDS ORDERED: LACTATED RINGERS 1,000 ML IV SCH (11:45)
--- NOTE | 2016-11-16 11:53 | Progress Note (SOAP) ---
Subjective Subjective/Events-last exam Pt states he is still in considerable pain. States he took two percocet after getting out of care home because of the dental pain. States he has not shot IV opiates in "a long time." Review of Systems Date Seen by Provider: Nov 16, 2016 Time Seen by Provider: 09:30 General: No Chills, No Night Sweats HEENT: No Head Aches Objective Exam Last Set of Vital Signs Vital Signs Date Time Temp Pulse Resp B/P (MAP) Pulse Ox O2 Delivery O2 Flow Rate FiO2 11/16/16 08:00 97.7 63 20 111/75 100 Room Air Capillary Refill : Less Than 3 Seconds I&O Bad tableGeneral: Alert, Oriented X3, Cooperative, No Acute Distress Lungs: Clear to Auscultation, Normal Air Movement Heart: Regular Rate, Normal S1, Normal S2, No Murmurs, Gallops, Rubs Abdomen: Normal Bowel Sounds, Soft, No Tenderness, No Hepatosplenomegaly, No Masses Results/Procedures Lab Microbiology 11/15/16 Blood Culture - Preliminary, Resulted No growth Radiology Date of Exam:11/15/16 CT MAXILLOFACIAL WO PROCEDURE: CT maxillofacial without contrast. TECHNIQUE: Multiple contiguous axial images were obtained through the facial bones without the use of intravenous contrast. INDICATION: Right-sided dental abscess. Evaluate for extent of infection. COMPARISON: None available. FINDINGS: There is asymmetric subcutaneous reticulations and induration along the superficial aspect of the mandible and buccal surface of the mandible. However, there is no discrete abscess within the subcutaneous tissues by noncontrast imaging. Inflammatory stranding extends up into the buccal space bilaterally. The patient's mandibular molars are absent bilaterally. There is a periapical lucency around both of the roots of the right second premolar (tooth 29). There are similar lucencies around both roots of the left second premolar (tooth 20). Cavity of the surface of the left second premolar with erosion of the enamel and dentin, which appears to extend deep to the level of the pulp. There is also a cavity involving the first premolar on the left (tooth 19). Multiple amalgam dental fillings are present throughout the remainder of the teeth. Multifocal mucosal thickening of the bilateral maxillary and ethmoid sinuses. Trace mucosal thickening of the right frontal sinus. Airway remains patent. Orbits are normal. No abnormal mass effect or hydrocephalus within the visualized portions of the brain. IMPRESSION: 1. Multifocal dental caries includes periapical lucencies of the bilateral second premolars (teeth #29 and #20). 2. Asymmetric inflammatory stranding along the buccal surface of the right mandible is likely due to dental infection. No discrete drainable abscess. 3. Multifocal paranasal sinus disease is likely chronic in nature. No complete opacification of the paranasal sinuses. 4. Findings are in agreement with the preliminary report. Assessment/Plan Assessment/Plan Admission Dx SEE BELOW Plan DENTAL ABSCESS ADM - on IV clinda and rocephin. we have called Dr Klein to take a look at him as well. 11/16 - to OR today. swelling in jaw already much improved. OPIATE ADDICTION ADM - pt previously on suboxone, obtaining it from his girlfriend from her rx, declined the program at [facility] [place]. would use narcotics very carefully in this patient. will DC hydrocodone, rely on NSAIDs for now. 11/16 - will write for opiates postoperatively but not for outpatient. will need to rely on NSAIDs. 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 discussed possibility of tx once he is proven to be 6 mo sober - includes not only drug screens but follow up with our addictions team. DVT PROPH: AMBULATE TID Diagnosis/Problems: DAX HAMILTON MD Nov 16, 2016 11:53 am
[2016-11-16] MEDS ORDERED: HYDROmorphone (DILAUDID) 2 MG/ML VIAL IV PRN (12:15)
[2016-11-16] MEDS ORDERED: HYDROcodone/APAP 7.5MG-325 MG/15 ML (LORTAB) UDC PO PRN (12:15)
[2016-11-16] MEDS: morphine INJ 10 MG/ML 1ML (SYR OR VIAL) IVP PRN ×2 (12:22→12:28)
[2016-11-16] MEDS ORDERED: PROMETHAZINE INJ 25 MG/ML (PHENERGAN) AMP ONE (12:26)
[2016-11-16] MEDS ORDERED: fentaNYL INJECTION 100 MCG/2 ML AMP IVP PRN (12:30)
[2016-11-16] MEDS ORDERED: ONDANSETRON 4 MG/2 ML (SDV) Z0FRAN IVP PRN (12:30)
[2016-11-16] MEDS ORDERED: morphine INJ 10 MG/ML 1ML (SYR OR VIAL) IVP PRN (12:30)
[2016-11-16] MEDS ORDERED: diphenhydrAMINE 50 MG/ML INJ (BENADRYL) ONE (12:33)
[2016-11-16] MEDS ORDERED: diphenhydrAMINE 50 MG/ML INJ (BENADRYL) IVP ONE (12:45)
[2016-11-16] MEDS ORDERED: PROMETHAZINE INJ 25 MG/ML (PHENERGAN) AMP IVP PRN (13:00)
[2016-11-16 13:22] VITALS: BP 142/88
[2016-11-16] MEDS ORDERED: ceFAZolin INJECTION 1,000 MG in NS (IVPB) 50 ML IV SCH (14:00)
[2016-11-16] MEDS ORDERED: AMOX500T2 PO (15:14)
[2016-11-16 15:34] VITALS: BP 124/80
--- NOTE | 2016-11-16 15:34 | Discharge Instructions ---
Discharge [facility] Discharge Medications New, Converted or Re-Newed RX: Call to Patients Pharmacy New Medications: Amoxicillin (Amoxicillin) 500 Mg Tablet 500 MG PO QID for 10 Days, #40 TAB Patient Instructions Goal/Follow Up Appt: PLEASE FOLLOW UP WITH DR DANG RECOMMENDED. DR SANTO AT [facility] [place] AT 4:20. Patient Instructions: PLEASE TAKE ALL ANTIBIOTICS PRESCRIBED. YOU CAN TAKE IBUPROFEN OR TYLENOL FOR PAIN. IF YOU COME TO [facility] [place], WE CAN GIVE YOU TOOTH BALLS WELL TO HELP WITH THE PAIN. Return to The Hospital For: FEVER, BLEEDING THAT WON'T STOP. Activity & Diet Discharge Diet: No Restrictions Activity as Tolerated: Yes Copy Copies To 1: POLINA SANTO MD, JULIE A MD Nov 16, 2016 3:34 pm
--- NOTE | 2016-11-16 15:42 | Discharge Summary ---
Diagnosis/Chief Complaint Date of Admission Nov 15, 2016 at 2:54 am Date of Discharge NOVEMBER 16, 2016. Admission Diagnosis Admission Diagnosis SEE BELOW Discharge Diagnosis DENTAL ABSCESS ADM - on IV clinda and rocephin. we have called Dr Klein to take a look at him as well. 11/16 - to OR today. swelling in jaw already much improved. DIS - PT ok for discharge by Dr Klein. will take amoxicillin as outpatient. to follow up with DR Klein and [facility] as written in DC instructions. OPIATE ADDICTION ADM - pt previously on suboxone, obtaining it from his girlfriend from her rx, declined the program at [facility]. would use narcotics very carefully in this patient. will DC hydrocodone, rely on NSAIDs for now. 11/16 - will write for opiates postoperatively but not for outpatient. will need to rely on NSAIDs. DIS - pt to rely on NSAIDs for pain control, have also offered him to come to [facility] for toothballs for local anesthetic. 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 discussed possibility of tx once he is proven to be 6 mo sober - includes not only drug screens but follow up with our addictions team. Chief Complaint/HPI Chief Complaint/HPI 41yo male presented to ER with complaints of fever and abscessed tooth. Patient states that he was recently in the [facility] care home and was given 10 days of amoxicillin for the tooth. He was in care home 40 days, and he was seen at the dental clinic prior to going to care home. He had been referred to Dr Klein but had not followed through with that when he went to care home. He had finished the amoxicillin and has been out of care home for 3-4 days. His right side of his jaw had swelled significantly, and he cannot bite down due to pain. He has also had a worsening fever in [place] past 24-48h. No obvious pus coming from the abscessed tooth. No bleeding. Discharge Summary-Simple/Stand Consultations Corky Klein DDS Discharge Physical Examination Allergies: Coded Allergies: morphine (Unverified Allergy, Intermediate, HIVES, RAISED RED RASH, 11/16/16 ) codeine (Unverified Allergy, Mild, 08/22/09) Vitals & I&Os Vital Sign - Last 12Hours Date Time Temp Pulse Resp B/P (MAP) Pulse Ox O2 Delivery O2 Flow Rate FiO2 11/16/16 13:22 98.8 81 20 142/88 97 Room Air Intake and Output 11/16/16 00:00 Intake Total 3206 ml Output Total 2125 ml Balance 1081 ml General Appearance: Alert, Oriented X3, Cooperative, No Acute Distress Respiratory: Clear to Auscultation, Normal Air Movement Cardiovascular: Regular Rate, Normal S1, Normal S2, No Murmurs, Gallops, Rubs Abdominal: Normal Bowel Sounds, Soft, No Tenderness, No Hepatosplenomegaly, No Masses Hospital Course See final discharge diagnosis. Radiology Reviewed Date of Exam:11/15/16 CT MAXILLOFACIAL WO PROCEDURE: CT maxillofacial without contrast. TECHNIQUE: Multiple contiguous axial images were obtained through the facial bones without the use of intravenous contrast. INDICATION: Right-sided dental abscess. Evaluate for extent of infection. COMPARISON: None available. FINDINGS: There is asymmetric subcutaneous reticulations and induration along the superficial aspect of the mandible and buccal surface of the mandible. However, there is no discrete abscess within the subcutaneous tissues by noncontrast imaging. Inflammatory stranding extends up into the buccal space bilaterally. The patient's mandibular molars are absent bilaterally. There is a periapical lucency around both of the roots of the right second premolar (tooth 29). There are similar lucencies around both roots of the left second premolar (tooth 20). Cavity of the surface of the left second premolar with erosion of the enamel and dentin, which appears to extend deep to the level of the pulp. There is also a cavity involving the first premolar on the left (tooth 19). Multiple amalgam dental fillings are present throughout the remainder of the teeth. Multifocal mucosal thickening of the bilateral maxillary and ethmoid sinuses. Trace mucosal thickening of the right frontal sinus. Airway remains patent. Orbits are normal. No abnormal mass effect or hydrocephalus within the visualized portions of the brain. IMPRESSION: 1. Multifocal dental caries includes periapical lucencies of the bilateral second premolars (teeth #29 and #20). 2. Asymmetric inflammatory stranding along the buccal surface of the right mandible is likely due to dental infection. No discrete drainable abscess. 3. Multifocal paranasal sinus disease is likely chronic in nature. No complete opacification of the paranasal sinuses. 4. Findings are in agreement with the preliminary report. Discharge Instructions to patient/family Please see [employer] discharge instructions given to patient. Discharge Medications Reviewed and agree with Discharge Medication list on patient's Discharge Instruction sheet Copy Copies To 1: POLINA SANTO MD, JULIE A MD Nov 16, 2016 3:42 pm
[2016-11-16] MEDS ORDERED: DEXAMETHASONE 4 MG/ML SDV (DECADRON) IV SCH (18:00)
--- NOTE | 2016-11-22 10:24 | Progress Note-Post Operative ---
Post-Operative Progess Note Surgeon (s)/Supervisor [employer] (s) Surgeon SAMMY DANG DDS Supervisor [employer]: katie bridges Pre-Operative Diagnosis carious teeth 19,30 submandibular abcess right side Post-Operative Diagnosis same Procedure & Operative Findings Date of Procedure 11/22/16 Procedure Performed/Findings extraction of teeth 19 and 30, intraoral i and d Anesthesia Type geta Estimated Blood Loss Estimated blood loss (mL): minimal Specimens/Packing Specimens Removed none Packing: none SAMMY DANG DDS Nov 22, 2016 10:24 am
--- NOTE | 2016-11-23 15:10 | OPERATIVE REPORT ---
DATE OF SERVICE: 11/16/2016 SURGEON: Sammy Dang DDS FENCE MAKING MACHINE OPERATOR: Natasha Moody. PREOPERATIVE DIAGNOSIS: Carious and nonfunctional teeth #19 and 30. POSTOPERATIVE DIAGNOSIS: Carious and nonfunctional teeth #19 and 30. PROCEDURE: Extraction of teeth #19 and 30 and intraoral I and D around tooth #30. ANESTHESIA: General endotracheal. COMPLICATIONS: There were no complications. HISTORY OF PRESENT ILLNESS AND INDICATION FOR PROCEDURE: The patient is a 41-year-old white male who presented to the Emergency Room approximately 2:00 in the morning on 11/16. He was then admitted through the Emergency Room by Dr. Mott and assigned to Dr. Naik. I was then consulted. At the present time he had 2 carious and nonfunctional teeth #19 and 30 with a minor 7 mm abscess associated with tooth #30. After having a CT scan, it was determined that he did not have any obvious abscess that could be drained at this point; however, he was then maintained on intravenous antibiotics for approximately 24 hours and then he was scheduled for surgery. PAST MEDICAL HISTORY: Significant for hepatitis C and epilepsy. PROCEDURE: The patient was taken to the operating room and placed on the operatory table. Appropriate monitors were placed and anesthesia was induced via oral tracheal intubation without difficulty. After this was secured, the surgeon left the room, scrubbed, returned on sterile gowns and gloves and prepped and draped the patient in the usual standard and sterile fashion. After this, I deposited local anesthesia in and around with bilateral mandibular blocks. After this all had taken effect, we then removed tooth #19 after opening a full thickness mucoperiosteal flap and removing any interfering bone. The tooth was removed in its entirety. There was no excessive hemorrhage. The neurovascular bundle was not visualized. Closure was completed with 3-0 Chromic gut. Next, we turned our attention to tooth #30. At this point I again opened a full thickness mucoperiosteal flap and then removed any interfering bone and removed this tooth in its entirety. I also made an incision at the ____ buccal junction on the lateral aspect of the mandible and then dissected inferiorly. While I did not have any purulent drainage, there was some serosanguineous fluid which we then irrigated both in the extraction socket and on the lateral aspect of the mandible. This completed our procedure. I did not close this as I wanted it to be left open to drain. We then removed the throat pack. He was allowed to emerge from his general anesthetic until he was breathing spontaneously. He was then extubated and transported to the recovery room and assessed until stable vital signs, breathing spontaneously with pulse ox 99%. Job ID: [id number] DocumentID: [id number] Dictated Date: 11/22/2016 10:32:01 Director Supply Date: 11/22/2016 14:06:58 Dictated By: SAMMY DANG DDS
== END 2016-11-16 16:33 | disposition home or self-care (01) | DRG 137 ==
LOC: EDUNIT# 23:42 → ER 23:44 → 4TH 11-15 02:54
PROVIDERS: ADMIT Family Medicine; ATTEND Family Medicine
PROC: 0W930ZZ Drainage of Oral Cavity and Throat, Open Approach (ICD-10-PCS; 2016-11-16)
PROC: 0CDXXZ1 Extraction of Lower Tooth, Multiple, External Approach (ICD-10-PCS; principal; 2016-11-16 11:42)
DX: K04.7 Periapical abscess without sinus (principal); F11.20 Opioid dependence, uncomplicated; B18.2 Chronic viral hepatitis C; F17.210 Nicotine dependence, cigarettes, uncomplicated; G40.909 Epilepsy, unspecified, not intractable, without status epilepticus
CPT/HCPCS: 36415; 70355; 70486; 71010; 80053; 80164; 80306; 81000; 83605; 85025; 85610; 85730; 87040; 87081; 96361; 96365; 96375

== ENCOUNTER 2021-10-02 19:07 | Emergency (ER) | payer SELFPAY ==
[~2021-10-02] VITALS: Ht 182 cm; Wt 90.0 kg
[2021-10-02 19:07] VITALS: BP 116/90
[~2021-10-02 19:07] MED LIST changes: +AMOX500C2; +AMOX500T2 PO; +CYCL10TA25 PO; -CYCL10TA9 PO; +DIVA500T15 PO; +HYDR-4226 PO; -HYDR-757 PO; +IBUP-1780; +MIRT-69 PO; -TRAM50TA2 PO; +TRM50T PO
[2021-10-02] MEDS ORDERED: diphenhydrAMINE 50 MG/ML INJ (BENADRYL) IM ONE (19:15)
[2021-10-02] MEDS ORDERED: LORazepam INJ 2 MG/ML (ATIVAN) VIAL IM ONE (19:15)
[2021-10-02] MEDS ORDERED: HALOPERIDOL 5 MG/ML (HALDOL) VIAL IM ONE (19:15)
[2021-10-02] MEDS ORDERED: OLANZapine 5 MG ODT (ZyPREXA ZYDIS) ONE (19:17)
[2021-10-02] MEDS ORDERED: NS IV 1000 ML 1,000 ML IV STA ×2 (19:17→20:23)
[2021-10-02] MEDS ORDERED: HALOPERIDOL 5 MG/ML (HALDOL) VIAL ONE (19:18)
[2021-10-02] MEDS ORDERED: diphenhydrAMINE 50 MG/ML INJ (BENADRYL) ONE (19:18)
[2021-10-02] MEDS ORDERED: LORazepam INJ 2 MG/ML (ATIVAN) VIAL ONE (19:19)
--- NOTE | 2021-10-02 19:24 | ED General ---
General Chief Complaint: AMS Stated Complaint: DEHYDRATION Source of Information: Patient Exam Limitations: No Limitations History of Present Illness Date Seen by Provider: Oct 02, 2021 Time Seen by Provider: 19:19 Initial Comments This is a 46-year-old male that presents to the emergency room by EMS for altered mental status. He was apparently found unconscious next to a pool and EMS was called. When they got there he the patient was complaining of severe b roshan cramps all over and was minimally cooperative. He tells me that something is wrong with him but does not elaborate. He states that he cannot hold still and when we attempt to gain IV access the patient jerks his arms and legs away. 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 He does not recall if he drank any water today. He states that he does have a history of IV fentanyl use but has not used in several years. Aside from the muscle cramping throughout his body he denies chest pain, weakness, blurry vision, double vision, headache, shortness of breath or recent illness. After multiple failed attempts with 6-7 people in the room to hold the patient down to gain IV access, I did order IM Benadryl, Ativan and Haldol. The hope is that this will sedate the patient enough to where we can gain some IV access and check electrolyte status and provide IV fluid resuscitation. Per patient's the patient does have a history of seizures and takes depakote. Timing/Duration: 1 Day Severity: Moderate Associated Systoms: Denies Symptoms Allergies and Home Medications Allergies Coded Allergies: morphine (Unverified Allergy, Intermediate, HIVES, RAISED RED RASH, 11/16/16) codeine (Unverified Allergy, Mild, 08/22/09) Patient Home Medication List Home Medication List Reviewed: Yes Amoxicillin (Amoxicillin) 500 Mg Tablet, 500 MG PO QID Prescribed by: RULA ROBINS on 11/16/16 1514 Divalproex Sodium (Divalproex Sodium ER) 500 Mg Tab.er.24h, 500 MG PO HS, (Reported) Entered as Reported by: FRANCISCO AHILE on 11/14/16 1960 Review of Systems Review of Systems Constitutional: malaise EENTM: no symptoms reported Respiratory: No cough, No short of breath Gastrointestinal: no symptoms reported Genitourinary: no symptoms reported Musculoskeletal: see HPI Skin: no symptoms reported Hematologic/Lymphatic: No Symptoms Reported Past Rncrmxm-Amhofy-Arzgrb Hx Patient Social History Tobacco Use?: Yes Immunizations Up To Date Tetanus Booster (TDap): Less than 5yrs PED Vaccines UTD: Yes Seasonal Allergies Seasonal Allergies: No Past Medical History Surgeries: Yes (Z-PLASTY, skin graft) Respiratory: No Cardiac: Yes Neurological: Yes Seizure Disorder Genitourinary: No Gastrointestinal: Yes Hepatitis Musculoskeletal: Yes Chronic Back Pain Endocrine: No HEENT: No Cancer: No Psychosocial: No Integumentary: No Blood Disorders: No Family Medical History No Pertinent Family Hx Physical Exam Vital Signs Vital Signs - First Documented 10/02/21 19:07 Temp 37.8 Resp 14 B/P (MAP) 116/90 (99) Pulse Ox 94 O2 Delivery Room Air Capillary Refill : Height, Weight, BMI Height: 6'1.00" Weight: 183lbs. 2.0oz. 83.365224gc; 24.2 BMI Method:Stated General Appearance: No Apparent Distress, WD/WN HEENT: PERRL/EOMI, Pharynx Normal Neck: Full Range of Motion, Normal Inspection, Non Tender Respiratory: Lungs Clear, Normal Breath Sounds Cardiovascular: Regular Rate, Rhythm, No Edema Back: Normal Inspection, No CVA Tenderness Extremity: Other (Patient has intermittent spasming to his calf muscles and forearms) Neurologic/Psychiatric: Alert, Other (Agitated) Skin: Normal Color, Warm/Dry Progress/Results/Core Measures Suspected Sepsis SIRS Temperature: Pulse: Respiratory Rate: Laboratory Tests 10/02/21 20:17: White Blood Count 6.2 Blood Pressure / Mean: Laboratory Tests 10/02/21 20:17: Creatinine 0.95, Platelet Count 220, Total Bilirubin 0.4 Results/Orders Lab Results Laboratory Tests Test 10/02/21 20:17 Range/Units White Blood Count 6.2 4.3-11.0 10^3/uL Red Blood Count 3.97 L 4.30-5.52 10^6/uL Hemoglobin 11.1 L 13.3-17.7 g/dL Hematocrit 36 L 40-54 % Mean Corpuscular Volume 90 80-99 fL Mean Corpuscular Hemoglobin 28 25-34 pg Mean Corpuscular Hemoglobin Concent 31 L 32-36 g/dL Red Cell Distribution Width 13.6 10.0-14.5 % Platelet Count 220 130-400 10^3/uL Mean Platelet Volume 9.4 9.0-12.2 fL Immature Granulocyte % (Auto) 0 % Neutrophils (%) (Auto) 74 42-75 % Lymphocytes (%) (Auto) 13 12-44 % Monocytes (%) (Auto) 7 0-12 % Eosinophils (%) (Auto) 5 0-10 % Basophils (%) (Auto) 1 0-10 % Neutrophils # (Auto) 4.6 1.8-7.8 10^3/uL Lymphocytes # (Auto) 0.8 L 1.0-4.0 10^3/uL Monocytes # (Auto) 0.4 0.0-1.0 10^3/uL Eosinophils # (Auto) 0.3 0.0-0.3 10^3/uL Basophils # (Auto) 0.0 0.0-0.1 10^3/uL Immature Granulocyte # (Auto) 0.0 0.0-0.1 10^3/uL Sodium Level 133 L 135-145 MMOL/L Potassium Level 3.6 3.6-5.0 MMOL/L Chloride Level 101 98-107 MMOL/L Carbon Dioxide Level 22 21-32 MMOL/L Anion Gap 10 5-14 MMOL/L Blood Urea Nitrogen 18 7-18 MG/DL Creatinine 0.95 0.60-1.30 MG/DL Estimat Glomerular Filtration Rate 99 BUN/Creatinine Ratio 19 Glucose Level 93 70-105 MG/DL Calcium Level 8.1 L 8.5-10.1 MG/DL Corrected Calcium 8.7 8.5-10.1 MG/DL Total Bilirubin 0.4 0.1-1.0 MG/DL Aspartate Amino Transf (AST/SGOT) 17 5-34 U/L Alanine Aminotransferase (ALT/SGPT) 8 0-55 U/L Alkaline Phosphatase 58 40-136 U/L Total Creatine Kinase 174 30-200 U/L Troponin I < 0.028 <0.028 NG/ML Total Protein 7.5 6.4-8.2 GM/DL Albumin 3.2 3.2-4.5 GM/DL My Orders Orders - GUERO DEE Diphenhydramine Injection (Benadryl Inje (10/02/21 19:15) Haloperidol Injection (Haldol Injectio (10/02/21 19:15) Lorazepam Injection (Ativan Injection) (10/02/21 19:15) Creatine Kinase (10/02/21 19:17) Ed Iv/Invasive Line Start (10/02/21 19:17) Cbc With Automated Diff (10/02/21 19:17) Comprehensive Metabolic Panel (10/02/21 19:17) Drug Screen Stat (Urine) (10/02/21 19:17) Troponin I Renetta (10/02/21 19:17) Chest 1 View, Ap/Pa Only (10/02/21 19:17) Ns Iv 1000 Ml (Sodium Chloride 0.9%) (10/02/21 19:17) Olanzapine Orally Dissolve Tab (Zyprexa (10/02/21 19:17) Diphenhydramine Injection (Benadryl Inje (10/02/21 19:18) Haloperidol Injection (Haldol Injectio (10/02/21 19:18) Lorazepam Injection (Ativan Injection) (10/02/21 19:19) Ns Iv 1000 Ml (Sodium Chloride 0.9%) (10/02/21 20:23) Medications Given in ED Current Medications Medications Dose Ordered Sig/Annetta Route Start Time Stop Time Status Last Admin Dose Admin Diphenhydramine HCl 25 mg ONCE ONCE IM 10/02/21 19:15 10/02/21 19:17 DC 10/02/21 19:22 25 MG Haloperidol Lactate 5 mg ONCE ONCE IM 10/02/21 19:15 10/02/21 19:17 DC 10/02/21 19:22 5 MG Lorazepam 2 mg ONCE ONCE IM 10/02/21 19:15 10/02/21 19:17 DC 10/02/21 19:22 2 MG Vital Signs/I&O 10/02/21 19:07 Temp 37.8 Resp 14 B/P (MAP) 116/90 (99) Pulse Ox 94 O2 Delivery Room Air Capillary Refill : Departure Communication (PCP) Patient had marked improvement with the IM Benadryl, Haldol and Ativan. We were able to gain IV access and give the patient 2L of NS. He tolerated well and was resting comfortably. His arrived and tells me they were working together on a pool and he was not drinking very much water today. She left due to the heat b ut he stayed on with his [id number]-yc-hix. The junvdb-le-qbu is the one who called EMS per . At this time I do not feel CT of the head, cardiac work up or admission is indicated. Patient feels better after therapy. We will discharge home with . At discharge the patient and tell me he has had a sinus infection for 1 week and they would like abx for this as well. I did send in Augmentin for him at this time. Impression Primary Impression: Heat exhaustion Additional Impression: Dehydration after exertion Disposition: 01 HOME, SELF-CARE Condition: Stable Departure-Patient Inst. Decision time for Depature: 20:58 Referrals: [facility] (PCP/Family) Primary Care Physician Patient Instructions: Why Water Is Important to Health, Dehydration, Adult ED Add. Discharge Instructions: Please follow-up closely with your primary care doctor as needed. Return to the emergency room with any severe changes or worsening of your symptoms. Scripts Amoxicillin/Potassium Clav (Augmentin 875-125 Tablet) 1 Each Tablet 1 EACH PO BID for 10 Days, #20 TAB Prov: GUERO DEE 10/02/21 GUERO DEE Oct 02, 2021 19:24
--- NOTE | 2021-10-02 20:03 | Diagnostic Imaging Report ---
INDICATION: Syncope. EXAMINATION: Frontal chest was obtained at 7:53 p.m. COMPARISON: 11/15/2016. FINDINGS: There is bibasilar atelectasis with poor inspiration. There is no focal infiltrate or pneumothorax or pleural fluid. Heart is normal in size. IMPRESSION: Bibasilar atelectatic change. No consolidation or pleural fluid or pneumothorax. Dictated by: Dictated on workstation # [id number]
[2021-10-02 20:24] LABS: BASOPHILS % (AUTO) 1 % (0-10); EOSINOPHILS # (AUTO) 0.3 10^3/uL (0.0-0.3); EOSINOPHILS % (AUTO) 5 % (0-10); HEMATOCRIT 36 % (40-54); HEMOGLOBIN 11.1 g/dL (13.3-17.7); LYMPHOCYTES # (AUTO) 0.8 10^3/uL (1.0-4.0); LYMPHOCYTES % (AUTO) 13 % (12-44); MEAN CORPUSCULAR HEMOGLOBIN 28 pg (25-34); MEAN CORPUSCULAR HGB CONC 31 g/dL (32-36); MEAN CORPUSCULAR VOLUME 90 fL (80-99); MEAN PLATELET VOLUME 9.4 fL (9.0-12.2); MONOCYTES # (AUTO) 0.4 10^3/uL (0.0-1.0); MONOCYTES % (AUTO) 7 % (0-12); NEUTROPHILS # (AUTO) 4.6 10^3/uL (1.8-7.8); NEUTROPHILS % (AUTO) 74 % (42-75); PLATELET COUNT 220 10^3/uL (130-400); WHITE BLOOD COUNT 6.2 10^3/uL (4.3-11.0)
[2021-10-02 20:33] LABS: ALBUMIN 3.2 GM/DL (3.2-4.5); CHLORIDE 101 MMOL/L (98-107); POTASSIUM 3.6 MMOL/L (3.6-5.0); SODIUM 133 MMOL/L (135-145)
[2021-10-02 20:34] LABS: CALCIUM 8.1 MG/DL (8.5-10.1)
[2021-10-02 20:35] LABS: GLUCOSE 93 MG/DL (70-105)
[2021-10-02 20:36] LABS: TOTAL PROTEIN 7.5 GM/DL (6.4-8.2)
[2021-10-02 20:37] LABS: BILIRUBIN,TOTAL 0.4 MG/DL (0.1-1.0); CARBON DIOXIDE 22 MMOL/L (21-32)
[2021-10-02 20:39] LABS: ALKALINE PHOSPHATASE 58 U/L (40-136); CREATININE SERUM 0.95 MG/DL (0.60-1.30); GFR ESTIMATED 99
[2021-10-02 20:40] LABS: BUN/CREATININE RATIO 19
[2021-10-02 20:42] LABS: ALANINE AMINOTRANSFERASE 8 U/L (0-55); CREATINE KINASE 174 U/L (30-200)
[2021-10-02] MEDS ORDERED: AMOX-358 PO (21:41)
[2021-10-02 21:57] LABS: AMPHETAMINE SCREEN, URINE POSITIVE (NEGATIVE); BARBITURATE SCREEN URINE NEGATIVE (NEGATIVE); BENZODIAZEPINES SCREEN URINE POSITIVE (NEGATIVE); CANNABINOID SCREEN, URINE POSITIVE (NEGATIVE); COCAINE SCREEN URINE NEGATIVE (NEGATIVE); METHADONE STAT NEGATIVE (NEGATIVE); OPIATE SCREEN URINE NEGATIVE (NEGATIVE); OXYCODONE STAT POSITIVE (NEGATIVE); PROPOXYPHENE STAT M (NEGATIVE); TRICYCLIC ANTIDEPRESSANTS SCRE NEGATIVE (NEGATIVE)
== END 2021-10-02 21:45 | disposition home or self-care (01) ==
LOC: EDUNIT# 19:07 → ER 19:09
DX: T67.5XXA Heat exhaustion, unspecified, initial encounter (principal); E86.0 Dehydration; G40.909 Epilepsy, unspecified, not intractable, without status epilepticus; Z79.899 Other long term (current) drug therapy; X30.XXXA Exposure to excessive natural heat, initial encounter
CPT/HCPCS: 36415; 71045; 80053; 80306; 82550; 84484; 85025

== ENCOUNTER 2022-06-02 13:32 | Emergency (ER) | payer SELFPAY ==
[~2022-06-02] VITALS: Ht 185.5 cm; Wt 83.9 kg
[~2022-06-02 13:32] MED LIST changes: +AMOX-358 PO
[2022-06-02] MEDS ORDERED: CLINDAMYCIN 150 MG (CLEOCIN) CAP PO STA (14:27)
[2022-06-02] MEDS ORDERED: ACHD5005 PO ×2 (14:32→14:52)
[2022-06-02] MEDS ORDERED: CLIN-144 PO ×2 (14:32→14:52)
[2022-06-02] MEDS ORDERED: IBUP-1773 PO ×2 (14:32→14:52)
--- NOTE | 2022-06-02 14:32 | ED EENT ---
History of Present Illness General Chief Complaint: Dental Problems/Pain Stated Complaint: TOOTH PAIN Nursing Triage Note: PT AMBULATE TO TRIAGE WITHOUT DIFFICULTY WITH C/O LEFT SIDE TOP AND BOTTOM JAW PAIN X3 DAYS. PT STATES HE HAS BEEN CALLING [facility] AND HAS NOT BEEN ABLE TO GET INTO A DENTIST. PT REPORTS TAKING TYLENOL, NAPROXEN, ALEVE FOR PAIN WITHOUT RELIEF. Source: patient Exam Limitations: no limitations (BASHIR MUNGUIA) History of Present Illness Date Seen by Provider: Jun 02, 2022 Time Seen by Provider: 14:28 Initial Comments Patient is a 46-year-old male who presents ED with diffuse dental pain. Dental pain over the past 3 days. Reports he has several decay teeth that need pulled. Has attempted to see a dentist but states he cannot get into the dentist. Denies any facial swelling or redness. Reports pain to bilateral jaws and upper face. Denies of any neck pain, fever, chills. Is been taking anti- inflammatories without much improvement. (BASHIR MUNGUIA) Allergies and Home Medications Allergies Coded Allergies: morphine (Unverified Allergy, Intermediate, HIVES, RAISED RED RASH, 11/16/16) codeine (Unverified Allergy, Mild, 08/22/09) Patient Home Medication List Home Medication List Reviewed: Yes (BASHIR MUNGUIA) Amoxicillin (Amoxicillin) 500 Mg Tablet, 500 MG PO QID Prescribed by: RULA ROBINS on 11/16/16 1514 Amoxicillin/Potassium Clav (Augmentin 875-125 Tablet) 1 Each Tablet, 1 EACH PO BID Prescribed by: Corky Denise on 10/02/21 2141 Clindamycin HCl (Clindamycin HCl) 300 Mg Capsule, 300 MG PO QID Prescribed by: GUSTAVO PEÑA on 06/02/22 1452 Divalproex Sodium (Divalproex Sodium ER) 500 Mg Tab.er.24h, 500 MG PO HS, (Reported) Entered as Reported by: FRANCISCO HAILE on 11/14/16 2358 Hydrocodone/Acetaminophen (Hydrocodone-Acetamin 5-325 mg) 5 Mg-325 Mg Tablet, 1 TAB PO Q4H PRN for PAIN-MODERATE (5-7) Prescribed by: GUSTAVO PEÑA on 06/02/22 1452 Ibuprofen (Ibuprofen) 600 Mg Tablet, 600 MG PO Q6H Prescribed by: GUSTAVO PEÑA on 06/02/22 1452 Discontinued Medications Ibuprofen (Ibuprofen) 600 Mg Tablet, 600 MG PO Q6H Prescribed by: GUSTAVO PEÑA on 06/02/22 1432 Review of Systems Review of Systems Constitutional: No chills, No diaphoresis, No malaise, No weakness Eyes: Denies Blurred Vision, Denies Drainage, Denies Decreased Acuity, Denies Pain, Denies Photophobia Ears: Denies Dizziness, Denies Pain Mouth: denies clots; other (Dental pain,) Throat: denies pain, denies swelling, denies discharge Respiratory: No cough, No dyspnea on exertion Cardiovascular: No chest pain Gastrointestinal: No abdominal pain, No diarrhea, No nausea, No vomiting Musculoskeletal: No back pain, No joint pain Skin: No change in color, No change in hair/nails (BASHIR MUNGUIA) All Other Systems Reviewed Negative Unless Noted: Yes (BASHIR MUNGUIA) Past Puiuaxh-Yaisyl-Clhjrd Hx Patient Social History Tobacco Use?: Yes Tobacco type used: Cigarettes Smoking Status: Heavy Tobacco Smoker Smokeless Tobacco Frequency: Never a User Use of E-Cig and/or Vaping dev: No Use of E-Cig and/or Vaping Juan Carlos: Never a User Substance use?: No Alcohol Use?: No Pt feels they are or have been: No (BASHIR MNUGUIA) Immunizations Up To Date Tetanus Booster (TDap): Less than 5yrs PED Vaccines UTD: Yes (BASHIR MUNGUIA) Seasonal Allergies Seasonal Allergies: No (BASHIR MUNGUIA) Past Medical History Surgeries: Yes (Z-PLASTY, skin graft) Respiratory: No Cardiac: Yes Neurological: Yes Seizure Disorder Genitourinary: No Gastrointestinal: Yes Hepatitis Musculoskeletal: Yes Chronic Back Pain Endocrine: No HEENT: No Cancer: No Psychosocial: No Integumentary: No Blood Disorders: No (BASHIR MUNGUIA) Family Medical History No Pertinent Family Hx (BASHIR MUNGUIA) Physical Exam Vital Signs Vital Signs - First Documented 06/02/22 06/02/22 13:38 14:50 Temp 36.6 Pulse 77 Resp 22 B/P (MAP) 134/87 (103) Pulse Ox 99 O2 Delivery Room Air (ISAIAH KNIGHT MD) Height, Weight, BMI Height: 6'1.00" Weight: 183lbs. 2.0oz. 83.408966av; 24.00 BMI Method:Stated General Appearance: WD/WN, no apparent distress Eyes: bilateral eye normal inspection, bilateral eye PERRL, bilateral eye EOMI, bilateral eye abnormal EOM Ears: bilateral ear auricle normal, bilateral ear canal normal, bilateral ear TM normal, bilateral ear bleeding Nose: normal inspection Mouth/Throat: other (Several decaying teeth. Gum erythema and swelling bilateral upper and lower. No fluctuant mass. Several cavities. Poor dentition) Neck: non-tender, full range of motion, supple, normal inspection Cardiovascular: regular rate, rhythm, no edema, no gallop, no JVD Respiratory: chest non-tender, lungs clear, normal breath sounds, no respiratory distress, no accessory muscle use Gastrointestinal: normal bowel sounds, non tender, soft, no organomegaly Neurologic/Psychiatric: cashier ticket selling II-XII nml as tested, no motor/sensory deficits, alert, normal mood/affect Skin: normal color, warm/dry (BASHIR MUNGUIA) Progress/Results/Core Measures Results/Orders Vital Signs/I&O 06/02/22 06/02/22 13:38 14:50 Temp 36.6 Pulse 77 77 Resp 22 22 B/P (MAP) 134/87 (103) 132/90 Pulse Ox 99 O2 Delivery Room Air Room Air (ISAIAH KNIGHT MD) Blood Pressure Mean: 103 Departure Communication (PCP) Several decaying teeth. Poor dental tension. Gum swelling and erythema. No fluctuant mass. No facial swelling or erythema. Patient was given dose of clindamycin a dose of pain medication. Recommend dental outpatient follow-up. Did offer dental block but patient refused. No evidence of Dave angina. Oropharynx patent. Tolerating secretions. Return precaution were discussed such as worsening pain, facial swelling or redness. (BASHIR MUNGUIA) Impression Primary Impression: Toothache Disposition: 01 HOME, SELF-CARE Condition: Stable Departure-Patient Inst. Decision time for Depature: 14:30 (BASHIR MUNGUIA) Referrals: [facility] (PCP/Family) Primary Care Physician Patient Instructions: Dental Pain Scripts Ibuprofen (Ibuprofen) 600 Mg Tablet 600 MG PO Q6H for PAIN, #16 TAB 0 Refills Prov: BASHIR MUNGUIA 06/02/22 Hydrocodone/Acetaminophen (Hydrocodone-Acetamin 5-325 mg) 5 Mg-325 Mg Tablet 1 TAB PO Q4H PRN for PAIN-MODERATE (5-7), #8 TAB Prov: BASHIR MUNGUIA 06/02/22 Clindamycin HCl (Clindamycin HCl) 300 Mg Capsule 300 MG PO QID for 7 Days, #28 CAP Prov: BASHIR MUNGUIA 06/02/22 ATTENDING PHYSICIAN NOTE: I was physically present as attending physician in the emergency department during the care of this patient, but I was not directly involved in the decision making or delivery of care for this patient. (ISAIAH KNIGHT MD) BASHIR MUNGUIA Jun 02, 2022 14:32 ISAIAH KNIGHT MD Jun 02, 2022 21:08
[2022-06-02 14:50] VITALS: BP 132/90
== END 2022-06-02 14:50 | disposition home or self-care (01) ==
LOC: EDUNIT# 13:32 → ER 13:34
DX: K02.9 Dental caries, unspecified (principal); F17.210 Nicotine dependence, cigarettes, uncomplicated; Z88.5 Allergy status to narcotic agent; Z28.310 Unvaccinated for COVID-19
CPT/HCPCS: 99283